=== PATIENT | male | born 1990 | race Two or more races ===

== ENCOUNTER 2023-02-22 16:47 | Emergency (ER) | payer OTHER ==
[~2023-02-22] VITALS: Ht 185.4 cm; Wt 117.9 kg
== END 2023-02-22 21:27 | disposition home or self-care (01) ==
LOC: ER 16:47
DX: S53.114A Anterior dislocation of right ulnohumeral joint, initial encounter (principal); X58.XXXA Exposure to other specified factors, initial encounter; Y93.73 Activity, racquet and hand sports; Y92.9 Unspecified place or not applicable; Y99.9 Unspecified external cause status